=== PATIENT | male | born 1950 ===

== ENCOUNTER 2017-03-09 16:12 | Observation (INO) | payer BC, OTHER ==
[2017-03-09 16:26] VITALS: BMI 29.8
[2017-03-09 17:11] LABS: BASO # 0.01 K/mm3 (0.0-2.0); BASO % 0.1 % (0.0-3.0); EOS % 0.4 % (1.5-5.0); GRAN # 6.64 (1.4-6.5); GRAN % 80.2 % (50.0-68.0); HEMATOCRIT 40.7 % (42.0-52.0); LYMPH # 1.3 (1.2-3.4); LYMPH % 15.7 % (22.0-35.0); MEAN CELL VOLUME 90.4 fl (80.0-105.0); MEAN CORPUSCULAR HEMOGLOBIN 31.3 pg (25.0-35.0); MEAN CORPUSCULAR HGB CONC 34.6 g/dl (31.0-37.0); MEAN PLATELET VOLUME 11.4 fl (7.0-11.0); MONO # 0.3 (0.1-0.6); MONO % 3.6 % (1.0-6.0); RED CELL DISTRIBUTION WIDTH 13.2 % (11.5-14.5); WHITE BLOOD COUNT 8.3 10^3/ul (4.5-11.0)
--- NOTE | 2017-03-09 17:14 | ED PDOC ---
Arrival/HPI - General Chief Complaint: Chest Pain Time Seen by Provider: 03/09/17 16:20 Historian: Patient - History of Present Illness Narrative History of Present Illness (Text): 03/09/17 17:10 Patient is a 66 yo male presents from PMD office with history of intermittent chest pain over the past week, associated with radiation to the right shoulder and at times sensation of intermittent abdominal pain. Patient states he began experiencing dizziness over the past one to two days with this pain. States symptoms come and go. Not associated with exertion or meals. Denies associated palpitations. Denies headaches. Denies numbness or weakness or unsteadiness. Time/Duration: Prior to Arrival, > week Symptom Onset: Gradual Past Medical History - Infectious Disease Hx of Infectious Diseases: None - Cardiac Hx Atrial Fibrillation: Yes Hx Hypertension: Yes - Psychiatric Hx Substance Use: No Family/Social History Family/Social History: Unknown Family HX Smoking Status: Never Smoked Hx Alcohol Use: No Hx Substance Use: No Allergies/Home Meds Allergies/Adverse Reactions: Allergies No Known Allergies Allergy (Verified 03/09/17 16:26) Home Medications: Home Meds Medication Instructions Recorded Confirmed Apixaban [Eliquis] 5 mg PO DAILY 03/09/17 03/09/17 Aspirin [Aspirin EC] 325 mg PO DAILY 03/09/17 03/09/17 Metoprolol Tartrate 25 mg PO BID 03/09/17 03/09/17 Valsartan [Diovan] 80 mg PO DAILY 03/09/17 03/09/17 Review of Systems - Review of Systems Constitutional: Fatigue. absent: Fevers Eyes: absent: Vision Changes, Eye Pain ENT: absent: Hearing Changes, Sore Throat Respiratory: absent: SOB, Cough Cardiovascular: Chest Pain. absent: Palpitations, Edema, Calf Pain, [place] Gastrointestinal: Abdominal Pain. absent: Stool Changes, Appetite Changes Genitourinary Male: absent: Dysuria, Frequency Musculoskeletal: absent: Back Pain Skin: absent: Rash Neurological: Dizziness. absent: Headache, Focal Weakness, Gait Changes Endocrine: absent: Polyuria Hemo/Lymphatic: absent: Easy Bleeding Physical Exam Vital Signs Reviewed: Yes Vital Signs Temp Pulse Resp BP Pulse Ox 03/09/17 21:50 98.2 F 78 17 125/78 96 03/09/17 20:47 77 17 127/74 96 03/09/17 18:00 84 18 152/90 H 97 03/09/17 16:21 97.6 F 93 H 18 155/89 H 100 Temperature: Afebrile Pulse: Irregular Respiratory Rate: Normal Appearance: Positive for: Well-Appearing, Non-Toxic Mental Status: Positive for: Alert and Oriented X 3 - Systems Exam Head: Present: Atraumatic Pupils: Present: PERRL Mouth: Present: Moist Mucous Membranes Pharnyx: No: ERYTHEMA Nose (Internal): Present: Normal Inspection Neck: Present: Normal Range of Motion. No: Meningeal Signs Respiratory/Chest: Present: Clear to Auscultation. No: Respiratory Distress Cardiovascular: Present: Irregular Rhythm, Tachycardic Abdomen: No: Tenderness, Distention, Peritoneal Signs Rectal: No: Gross Blood Breast/Axillary: No: Erythema Back: No: CVA Tenderness Upper Extremity: No: Cyanosis Lower Extremity: Present: NORMAL PULSES, Neurovascularly Intact. No: Edema Neurological: Present: Motor Func Grossly Intact, Normal Sensory Function Skin: Present: Warm Psychiatric: Present: Alert, Normal Insight, Normal Concentration Medical Decision Making ED Course and Treatment: 03/09/17 17:21 Patient is a 66 yo male past medical hx of atrial fibrillation, with history of chest pain intermittently for past week, now with some dizziness. On initial exam, patient in atrial fibrillation, overall rate controlled, intertmittently rate will fluctuate to 100-110 although not symptomatic while in stretcher in ED. His neurological exam is intact, no focal deficits or weakness noted. 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 03/09/17 18:45 Given history of intermittent chest pain associated with dizziness, patient to be admitted for telemetry observation. Patient states PMD was Dr. Daisha Dalal. As. Dr. Rimma Bowser covering Dr. Christopher Tirado, case d/w Dr. Davis for his service , accepts admission with cardiology consultation. - Lab Interpretations Lab Results: 03/09/17 16:50 03/09/17 16:50 Lab Results 03/09/17 16:50: Sodium 139, Potassium 4.1, Chloride 104, Carbon Dioxide 25, Anion Gap 14, BUN 19, Creatinine 0.9, Est GFR ( Amer) > 60, Est GFR (Non- Af Amer) > 60, Random Glucose 108, Calcium 9.7, Total Bilirubin 0.8, AST 30, ALT 44, Alkaline Phosphatase 93, Lactate Dehydrogenase 418, Total Creatine Kinase 59, Troponin I < 0.01, NT-Pro-B Natriuret Pep 439, Total Protein 7.7, Albumin 4.4, Globulin 3.3, Albumin/Globulin Ratio 1.4 03/09/17 16:50: PT 16.0 H, INR 1.46 H, APTT 35.3 03/09/17 16:50: WBC 8.3, RBC 4.50, Hgb 14.1, Hct 40.7 L, MCV 90.4, MCH 31.3, MCHC 34.6, RDW 13.2, Plt Count 231, MPV 11.4 H, Gran % 80.2 H, Lymph % (Auto) 15.7 L, [place] % (Auto) 3.6, Eos % (Auto) 0.4 L, Baso % (Auto) 0.1, Gran # 6.64 H , Lymph # 1.3, [place] # 0.3, Eos # 0.0, Baso # 0.01 I have reviewed the lab results: Yes - RAD Interpretation Radiology Orders: 03/09/17 16:44 CHEST PORTABLE [RAD] Stat - EKG Interpretation EKG Interpretation (Text): 03/09/17 17:20 EKG at 16:19 atrial fibrillation rate of [address] elevations, no prior for comparison Interpreted by ED Physician: Yes Type: 12 lead EKG - Medication Orders Current Medication Orders: Discontinued Medications Apixaban (Eliquis) 5 mg PO DAILY [facility] PRN Reason: Protocol Last Admin: 03/10/17 09:03 Dose: 5 mg Aspirin (Ecotrin) 325 mg PO DAILY [facility] Last Admin: 03/10/17 09:03 Dose: 325 mg Losartan Potassium (Cozaar) 50 mg PO DAILY [facility] Last Admin: 03/10/17 09:03 Dose: 50 mg MAR Pulse and Blood Pressure Document 03/10/17 09:03 NORBERTO (Rec: 03/10/17 09:03 [facility] [id number]) Pulse Pulse Rate (60-90) 64 Blood Pressure Blood Pressure (100/60-150/90) 120/82 Metoprolol Tartrate (Lopressor) 25 mg PO BID [facility] Last Admin: 03/10/17 09:03 Dose: 25 mg MAR Pulse and Blood Pressure Document 03/10/17 09:03 NORBERTO (Rec: 03/10/17 09:03 [facility] [id number]) Pulse Pulse Rate (60-90) 64 Blood Pressure Blood Pressure (100/60-150/90) 120/82 Disposition/Present on Arrival - Present on Arrival Any Indicators Present on Arrival: No History of DVT/PE: No History of Uncontrolled Diabetes: No Urinary Catheter: No History of Decub. Ulcer: No History Surgical Site Infection Following: None - Disposition Have Diagnosis and Disposition been Completed?: Yes Diagnosis: Atrial fibrillation, Chest pain, Dizziness Disposition: HOSPITALIZED Disposition Time: 18:00 Patient Plan: Admission, Observation, Telemetry Condition: FAIR
[2017-03-09 17:21] LABS: ALB/GLOB RATIO 1.4 (1.1-1.8); ALKALINE PHOSPHATASE 93 U/L (38-126); ALT/SGPT 44 U/L (7-56); AST/SGOT 30 U/L (17-59); BILIRUBIN,TOTAL 0.8 mg/dL (0.2-1.3); BLOOD UREA NITROGEN 19 mg/dL (7-21); CALCIUM 9.7 mg/dL (8.4-10.5); CARBON DIOXIDE 25 mmol/L (21-33); CHLORIDE 104 mmol/L (98-107); GFR AFRICAN-AMERICAN > 60; GLUCOSE,RANDOM 108 mg/dL (70-110); POTASSIUM 4.1 mmol/L (3.6-5.0); SODIUM 139 mmol/L (132-148); TOTAL PROTEIN 7.7 g/dL (5.8-8.3)
[2017-03-09 17:31] LABS: INR 1.46 (0.93-1.08); PARTIAL THROMBOPLASTIN TIME 35.3 Seconds (25.1-36.5)
[2017-03-09 17:36] LABS: TROPONIN I < 0.01 ng/mL
[2017-03-09 22:12] LABS: URINE BILIRUBIN NEGATIVE (NEGATIVE); URINE BLOOD TRACE-INTACT (NEGATIVE); URINE GLUCOSE (UA) NEGATIVE (NEGATIVE); URINE KETONE NEGATIVE (NEGATIVE); URINE LEUKOCYTE ESTERASE NEGATIVE Leu/uL (NEGATIVE); URINE PROTEIN NEGATIVE mg/dL (<30 mg/dL); URINE UROBILINOGEN 0.2 E.U./dL (<1 E.U./dL)
[2017-03-09 22:21] LABS: URINE APPEARANCE CLEAR (CLEAR); URINE COLOR YELLOW (YELLOW)
[2017-03-09 22:34] LABS: URINE BACTERIA FEW (NEG); URINE RBC 0 - 2 /hpf (0-2)
[2017-03-10 06:32] VITALS: RESP 19; TEMP 98.2; O2SAT 99
[2017-03-10 09:05] VITALS: BP 120/82
[2017-03-10] MEDS ORDERED: Aspirin 325 mg EC Tablets PO SCH (10:00)
--- NOTE | 2017-03-10 10:12 | CARD ---
APPROVED REPORT EKG Measurement Heart [id number] <Conclusion> Atrial fibrillation
--- NOTE | 2017-03-10 10:29 | CARD ---
APPROVED REPORT EKG Measurement Heart [id number] <Conclusion> Atrial fibrillation No change
--- NOTE | 2017-03-10 11:06 | CON ---
DATE: 03/10/2017 CARDIOLOGY CONSULTATION HISTORY OF PRESENT ILLNESS: The patient is a 66-year-old male who presents with an episode of chest discomfort associated with some dizziness. The patient's past medical history is notable for hypertension. He also suffers from chronic atrial fibrillation in which he has been treated with aspirin Eliquis as well as beta blockers. The patient's symptoms are resolved. No diabetes mellitus. No previous myocardial infarction. SOCIAL HISTORY: The patient denies smoking. REVIEW OF SYSTEMS: A 14-point review of systems was reviewed in detail. The patient is free of cardiac symptomatology now. PHYSICAL EXAMINATION: VITAL SIGNS: Blood pressure is 120/82 and heart rate is atrial fibrillation in the 60s. NECK: Negative JVD. LUNGS: Without rales. HEART: Reveal S1 and S2. EXTREMITIES: Without edema. LABORATORY DATA: Hemoglobin is 14.1. Chemistries; troponins are negative x2. IMPRESSION 1. Chest pain. 2. No evidence for acute coronary syndrome. 3. Hypertension. 4. Chronic atrial fibrillation. 5. Dizziness. PLAN: 1, Given these findings, there is no evidence for acute coronary syndrome. The patient has transient symptoms are completely resolved. 2. From a cardiac perspective, the patient can be discharged. I have discussed with the patient and family about bringing him back next week for an outpatient stress test. He should be discharged on back on his Eliquis to protect him from a thromboembolic phenomenon from his atrial fibrillation. Leonel Lane MD
[2017-03-10 11:13] VITALS: PULSE 69
--- NOTE | 2017-03-10 12:30 | DS ---
HOSPITAL COURSE: He is here for chest pain. Troponins were negative. He will be discharged today with outpatient stress test as per Dr. Lane. We will continue with his Cozaar, Ecotrin, Eliquis, and metoprolol. Michael Bowser DO
--- NOTE | 2017-03-10 19:24 | HP ---
HISTORY OF PRESENT ILLNESS: I saw him resting comfortably in bed. He came into the emergency room with intermittent chest pain over the past week, radiating to his right shoulder, with some abdominal pain and some dizziness for 2 days. I see him now, he is doing much better, a 66-year-old man with chest pain. PAST MEDICAL HISTORY: He has a history of atrial fibrillation and hypertension. PAST SURGICAL HISTORY: No apparent surgeries. SOCIAL HISTORY: No smoking, no drinking, no drugs. ALLERGIES: NO ALLERGY TO ANY MEDICATIONS. MEDICATIONS: He takes Eliquis, aspirin, metoprolol, and Diovan. REVIEW OF SYSTEMS: No fevers. No changes in vision or hearing. No sore throat. No shortness of breath. No cough. He does have chest pain. No palpitations. No edema. No dyspnea on exertion. He does have some abdominal pain, better now, but no nausea, vomiting, constipation, or diarrhea. He urinates fine. No back pain or leg pain. Skin has no rashes or ulcers. He is a little bit dizzy from time to time, but none now. No headache or focal weakness. No problems urinating and he does not bleed easy. No sweating. Not anxious or depressed. PHYSICAL EXAMINATION: VITAL SIGNS: He has a 97.6 temperature, 84 pulse, 18 respiratory rate, 155/89 blood pressure, 100% O2 sat. HEENT: Head is atraumatic and normocephalic. He is well appearing, nontoxic. He is alert and oriented x3. His throat is moist. NECK: Supple. HEART: Regular rhythm. LUNGS: Clear to auscultation with decreased breath sounds. ABDOMEN: Soft, nontender. Positive bowel sounds. No guarding. No rebound. No CVA tenderness. EXTREMITIES: No edema. He moves all 4 extremities. NEUROLOGIC: Cranial nerve II through XII grossly intact. He is alert and calm. Families with him at this time. LABORATORY DATA: He had multiple tests. He has white count 8.3, hemoglobin 14.1, hematocrit 40.7, platelets are 231. INR is 1.46. Sodium 139, potassium 4.1, BUN 19, creatinine 0.9, GFR is greater than 60, sugar is 108, calcium is 9.7. Total bilirubin is 0.8, AST is 30, ALT is 45, alkaline phosphatase 93, lactate dehydrogenase is 418. Troponins are less than 0.01, less than 0.01. BNP is 439, total protein 7.7, albumin is 4.4. Urine is negative. Chest x-ray and EKG are pending. He has a consult with Cardiology. He is back on his Cozaar, Eliquis, Ecotrin, and metoprolol. 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 The troponins are negative. He is here for chest pain. Michael Bowser DO
--- NOTE | 2017-03-11 08:57 | RAD ---
HISTORY: chest pain COMPARISON: No prior. FINDINGS: LUNGS: No active pulmonary disease. PLEURA: No significant pleural effusion identified, no pneumothorax apparent. CARDIOVASCULAR: Normal. OSSEOUS STRUCTURES: Degenerative changes. VISUALIZED UPPER ABDOMEN: Normal. OTHER FINDINGS: None. IMPRESSION: No active disease.
== END 2017-03-10 11:56 | disposition home or self-care (01) ==
LOC: ED 16:12 → ERH 18:48 → 3RSO 21:56
PROVIDERS: ADMIT Family Medicine; ATTEND Family Medicine
DX: R07.89 Other chest pain (principal); I48.2 Chronic atrial fibrillation; I10 Essential (primary) hypertension; R42 Dizziness and giddiness; Z79.01 Long term (current) use of anticoagulants; Z79.82 Long term (current) use of aspirin; Z79.899 Other long term (current) drug therapy
CPT/HCPCS: 36415; 71010; 80053; 81001; 82550; 83615; 83880; 84484; 85025; 85610; 85730; 93005; 99285; G0378